=== PATIENT | male | born 1980 | race Caucasian/White ===

== ENCOUNTER 2018-11-19 16:11 | Emergency (ER) | payer OTHER ==
[~2018-11-19] VITALS: Ht 188 cm; Wt 125.0 kg
[2018-11-19] MEDS ORDERED: ketorolac trometh. 30mg/ml inj. IV ONE (19:20)
[2018-11-19 19:24] LABS: BASOPHILS # (AUTO) 0.1 X10'3 (0-0.2); BASOPHILS % (AUTO) 0.7 % (0-1); EOSINOPHILS # (AUTO) 0.2 X10'3 (0-0.9); EOSINOPHILS % (AUTO) 1.4 % (0-6); HEMATOCRIT 42.4 % (42.0-52.0); HEMOGLOBIN 14.4 g/dl (14.0-17.9); LYMPHOCYTES % (AUTO) 9.2 % (21-51); MEAN CORPUSCULAR HEMOGLOBIN 28.8 PG (27.0-31.0); MEAN CORPUSCULAR HGB CONC 33.9 g/dL (33.0-36.5); MEAN CORPUSCULAR VOLUME 84.9 FL (78-98); MEAN PLATELET VOLUME 8.4 FL (7.4-10.4); MONOCYTES # (AUTO) 0.7 X10'3 (0-0.9); NEUTROPHILS # (AUTO) 9.1 X10'3 (1.8-7.7); NEUTROPHILS % (AUTO) 82.7 % (42-75); PLATELET COUNT 279 X10'3 (140-440); RED BLOOD COUNT 4.99 X10'6 (4.70-6.10); RED CELL DISTRIBUTION WIDTH 12.7 % (11.5-14.5)
[2018-11-19 19:40] LABS: ALANINE AMINOTRANSFERASE 19 U/L (12-78); ALBUMIN 3.3 G/DL (3.4-5.0); ALBUMIN/GLOBULIN RATIO 0.9 (1.1-1.5); ALKALINE PHOSPHATASE 70 IU/L (46-116); ANION GAP 6 (8-16); ASPARTATE AMINO TRANSFERASE 7 U/L (10-37); BILIRUBIN,TOTAL 0.5 MG/DL (0.1-1.0); BLOOD UREA NITROGEN 21 MG/DL (7-18); BUN/CREATININE RATIO 18.9 (5.4-32.0); CHLORIDE 103 MMOL/L (99-107); CREATININE 1.11 MG/DL (0.60-1.10); GLUCOSE 95 MG/DL (70-104); POTASSIUM 3.4 MMOL/L (3.5-5.1); SODIUM 140 MMOL/L (135-145); TOTAL CARBON DIOXIDE 30.8 MMOL/L (24-32); eGFR 74 ML/MIN
[2018-11-19 19:41] LABS: CREATINE KINASE 26 U/L (39-308); LIPASE < 50 U/L (73-393); MAGNESIUM 2.1 MG/DL (1.5-2.4); PHOSPHORUS 2.7 MG/DL (2.3-4.5)
[2018-11-19 20:11] VITALS: BP 145/70
[2018-11-19] MEDS ORDERED: HYDR-4383 PO (20:28)
[2018-11-19] MEDS ORDERED: HYDROcodone/acetaminophen 5mg/325mg tablet PO ONE (20:30)
== END 2018-11-19 20:45 | disposition home or self-care (01) ==
LOC: ER 16:13
DX: M79.7 Fibromyalgia (principal); F32.9 Major depressive disorder, single episode, unspecified; Z79.899 Other long term (current) drug therapy
CPT/HCPCS: 36415; 80053; 82550; 83690; 83735; 84100; 85025; 93005; 96374; 99284; J1885

== ENCOUNTER 2018-11-21 00:23 | Emergency (ER) | payer OTHER ==
[~2018-11-21] VITALS: Ht 188 cm; Wt 110.5 kg
[~2018-11-21 00:23] MED LIST: HYDR-4383 PO
[2018-11-21 00:26] VITALS: BP 116/74
--- NOTE | 2018-11-21 02:20 | NUR ---
WALKED BY PT ROOM, PT ON KNEES AGAINST BED WITH HANDS FOLDED ON BED IN PRAYER POSITION
[2018-11-21 02:27] LABS: ALANINE AMINOTRANSFERASE 21 U/L (12-78); ALBUMIN 3.4 G/DL (3.4-5.0); ALBUMIN/GLOBULIN RATIO 0.9 (1.1-1.5); ALKALINE PHOSPHATASE 81 IU/L (46-116); ANION GAP 9 (8-16); ASPARTATE AMINO TRANSFERASE 6 U/L (10-37); BILIRUBIN,TOTAL 0.3 MG/DL (0.1-1.0); BLOOD UREA NITROGEN 24 MG/DL (7-18); BUN/CREATININE RATIO 22.6 (5.4-32.0); CALCIUM 8.8 MG/DL (8.5-10.1); CHLORIDE 103 MMOL/L (99-107); CREATININE 1.06 MG/DL (0.60-1.10); GLUCOSE 99 MG/DL (70-104); POTASSIUM 3.7 MMOL/L (3.5-5.1); SODIUM 141 MMOL/L (135-145); TOTAL CARBON DIOXIDE 29.5 MMOL/L (24-32); eGFR 78 ML/MIN
--- NOTE | 2018-11-21 02:30 | NUR ---
NOTIFIED BY AMALIA OF PT ON GROUND. WHEN ASKED WHAT PT WAS DOING ON GROUND, PT SAID HE CANT GET UP. I TOLD PT I SAW HIM ON HIS KNEES EARLIER. PT STATED HE DID PURPOSEFULLY GET TO HIS KNEES BUT NOW HE CANT GET BACK IN BED. JAREK HOLLAND HELPED ME GET PT UP TO BED WITH MINIMAL ASSISTANCE
[2018-11-21 02:31] LABS: BASOPHILS % (AUTO) 0.5 % (0-1); EOSINOPHILS # (AUTO) 0.3 X10'3 (0-0.9); EOSINOPHILS % (AUTO) 3.1 % (0-6); HEMATOCRIT 41.3 % (42.0-52.0); HEMOGLOBIN 14.1 g/dl (14.0-17.9); LYMPHOCYTES # (AUTO) 1.5 X10'3 (1.1-4.8); LYMPHOCYTES % (AUTO) 16.4 % (21-51); MEAN CORPUSCULAR HEMOGLOBIN 29.1 PG (27.0-31.0); MEAN CORPUSCULAR HGB CONC 34.1 g/dL (33.0-36.5); MEAN CORPUSCULAR VOLUME 85.4 FL (78-98); MEAN PLATELET VOLUME 8.9 FL (7.4-10.4); MONOCYTES # (AUTO) 0.7 X10'3 (0-0.9); MONOCYTES % (AUTO) 8.1 % (2-12); NEUTROPHILS # (AUTO) 6.4 X10'3 (1.8-7.7); NEUTROPHILS % (AUTO) 71.9 % (42-75); PLATELET COUNT 284 X10'3 (140-440); RED BLOOD COUNT 4.83 X10'6 (4.70-6.10); RED CELL DISTRIBUTION WIDTH 13.1 % (11.5-14.5); WHITE BLOOD COUNT 8.9 X10'3 (4.5-11.0)
[2018-11-21 02:32] LABS: URINE AMPHETAMINE SCREEN NEGATIVE (Neg); URINE BARBITUATE SCREEN NEGATIVE (Neg); URINE BENZODIAZEPINES SCREEN POSITIVE (Neg); URINE CANNABINOID SCREEN POSITIVE (Neg); URINE COCAINE SCREEN NEGATIVE (Neg); URINE METHADONE SCREEN NEGATIVE (Neg); URINE OPIATE SCREEN POSITIVE (Neg); URINE PHENCYCLIDINE SCREEN NEGATIVE (Neg)
[2018-11-21 02:32] LABS: MONOTEST NEGATIVE (Neg)
[2018-11-21 02:38] LABS: MAGNESIUM 2.1 MG/DL (1.5-2.4); PHOSPHORUS 2.4 MG/DL (2.3-4.5)
[2018-11-21 02:39] LABS: ETHANOL < 0.010 GM/DL (0.0-0.010)
== END 2018-11-21 03:34 | disposition home or self-care (01) ==
LOC: ER 00:24
DX: R53.1 Weakness (principal); M79.7 Fibromyalgia; F32.9 Major depressive disorder, single episode, unspecified; F12.90 Cannabis use, unspecified, uncomplicated; Z79.899 Other long term (current) drug therapy; Z60.2 Problems related to living alone
CPT/HCPCS: 36415; 80053; 80305; 80320; 83735; 84100; 84443; 84484; 85025; 86308; 93005; 99284

== ENCOUNTER 2019-04-26 18:33 | Emergency (ER) | payer OTHER ==
[~2019-04-26] VITALS: Ht 188 cm; Wt 122.7 kg
[2019-04-26 18:41] VITALS: BP 166/103
[2019-04-26] MEDS ORDERED: ondansetron 4mg rapidly disintigrating tab PO ONE (19:20)
--- NOTE | 2019-04-26 19:34 | NUR ---
PT HAD EPISODE OF NAUSEA, DIAPHORESIS, SHAKING LASTING 2HRS.
[2019-04-26] MEDS ORDERED: ONDA4TAB12 PO (19:43)
== END 2019-04-26 19:57 | disposition home or self-care (01) ==
LOC: ER 18:35
DX: R11.0 Nausea (principal); M79.7 Fibromyalgia; F12.90 Cannabis use, unspecified, uncomplicated
CPT/HCPCS: 82948; 99283

== ENCOUNTER 2019-08-07 08:08 | Emergency (ER) | payer OTHER ==
[~2019-08-07] VITALS: Ht 188 cm; Wt 122.7 kg
[~2019-08-07 08:08] MED LIST changes: +ONDA4TAB12 PO
[2019-08-07 08:10] VITALS: BP 165/104
== END 2019-08-07 10:20 | disposition home or self-care (01) ==
LOC: ER 08:08
DX: B34.9 Viral infection, unspecified (principal); Z20.828 Contact with and (suspected) exposure to other viral communicable diseases; M79.7 Fibromyalgia; F32.9 Major depressive disorder, single episode, unspecified; F12.90 Cannabis use, unspecified, uncomplicated; Z60.2 Problems related to living alone; Z79.899 Other long term (current) drug therapy
CPT/HCPCS: 36415; 87635; 99283

== ENCOUNTER 2019-08-17 15:40 | Emergency (ER) | payer OTHER ==
[~2019-08-17] VITALS: Ht 188 cm; Wt 127.3 kg
[2019-08-17 15:42] VITALS: BP 149/100
== END 2019-08-17 16:06 | disposition home or self-care (01) ==
LOC: ER 15:41
DX: R05 Cough (principal); R06.02 Shortness of breath; R50.9 Fever, unspecified; M79.7 Fibromyalgia; F32.9 Major depressive disorder, single episode, unspecified; F12.90 Cannabis use, unspecified, uncomplicated; Z60.2 Problems related to living alone; Z79.899 Other long term (current) drug therapy
CPT/HCPCS: 99281